=== PATIENT | female | born 1955 | race Caucasian/White ===

== ENCOUNTER → 2018-06-30 | Outpatient (CLI) | payer OTHER ==
[~2018-06-30] MED LIST: ALEVE PM CAPLE1 EACH PO; BLADDER CONTROL MED; GABAPENTIN 100100 MG PO; IBUPROFEN 600600 M1 PO; NORCO 5-325 TA1 EACH PO; OXYBUTYNIN 5 MG5 M2 PO; OXYBUTYNIN CHLO15 MG PO; PAROXETINE HCL25 MG PO; PAXIL 20 MG TAB20 M1; PREMARIN0.3 MG PO
== END ==
LOC: RAD 14:24
DX: Z12.31 Encounter for screening mammogram for malignant neoplasm of breast (principal)

== ENCOUNTER 2018-08-24 05:37 | Inpatient (IN) | payer OTHER ==
[2018-08-10 13:26] LABS: HEMATOCRIT 37.1 % (37.0-47.0); HEMOGLOBIN 12.2 gm/dL (12.0-15.0); MCH 28.9 pg (26.0-34.0); MCV 87.6 fL (80.0-100.0); RBC 4.23 mil/uL (4.20-5.00); RDW 14.8 % (10.5-14.5); WBC 4.8 thou/uL (4.0-11.0)
[2018-08-10 13:28] LABS: URINE CLARITY CLEAR; URINE COLOR YELLOW
[2018-08-10 13:29] LABS: URINE BILIRUBIN NEGATIVE (Negative); URINE BLOOD TRACE (Negative); URINE GLUCOSE-RANDOM* NEGATIVE (Negative); URINE KETONES NEGATIVE (Negative); URINE LEUKOCYTES-REFLEX NEGATIVE (Negative); URINE NITRITE-REFLEX NEGATIVE (Negative); URINE PROTEIN (DIPSTICK) NEGATIVE (Negative); URINE SPECIFIC GRAVITY 1.025 (1.005-1.035); URINE UROBILINOGEN 0.2 E.U./dl (0.2-1.0)
[2018-08-10 13:30] LABS: ALBUMIN 4.1 g/dL (3.4-5.0); CALCIUM 9.2 mg/dL (8.5-10.1); CREATININE 0.8 mg/dL (0.6-1.0); POTASSIUM 4.3 mmol/L (3.5-5.1)
[2018-08-10 13:31] LABS: PROTIME 10.3 Seconds (9.3-11.4)
--- NOTE | 2018-08-11 07:59 | EKG ---
[address] [address] ELECTROCARDIOGRAM REPORT Name: LUIS MIGUEL BROWN Room #: [facility] IN [facility]#: [id number] Admission: Attend Phys: Nando Alexander MD Discharge: Date of : 53 Report #: [id number] THIS REPORT FOR: //name// [facility] Test Date: 2018-08-10 Test Time: 13:11:36 Pat Name: LUIS MIGUEL BROWN Department: Room: Gender: F Gold Nib Grinder: SHAKIRA JAMES : 1955 Requested By: Nando Alexander Order Number: [id number] MD: Tj Kramer Measurements Intervals [place] Rate: 73 P: 59 LA: 217 QRS: -44 QRSD: 115 T: 46 QT: 422 QTc: 465 Interpretive Statements Sinus rhythm Borderline prolonged LA interval Nonspecific IVCD with LAD Left ventricular hypertrophy Inferior infarct, old Anterior infarct, old Compared to ECG 04/07/2005 10:48:29 Left ventricular hypertrophy now present Myocardial infarct finding still present Electronically Signed On 08-11-2018 7:59:00 HEAD STRENGTH AND CONDITIONING COACH by Tj Kramer [email or web address] <ELECTRONICALLY SIGNED> By: Tj Kramer MD 08/11/18 0759 1311 1311 Tj Kramer MD /EPI
[~2018-08-24] VITALS: Ht 162.6 cm; Wt 61.2 kg
[~2018-08-24 05:37] MED LIST changes: +GLUCOSAMINE CH1 EA10 PO; +INSTAFLEX PO; +MOBIC15 MG PO; +OCUVITE ADULT1 EAC1 PO
[2018-08-25 07:45] VITALS: BP 126/76
[2018-08-25 12:41] VITALS: BP 140/86
[2018-08-25 15:43] LABS: HEMATOCRIT 34.6 % (37.0-47.0); HEMOGLOBIN 11.6 gm/dL (12.0-15.0); MCH 29.7 pg (26.0-34.0); MCHC 33.6 g/dL (28.0-37.0); MCV 88.5 fL (80.0-100.0); PLATELET COUNT 320 thou/uL (150-400); RBC 3.91 mil/uL (4.20-5.00); RDW 15.3 % (10.5-14.5); WBC 4.2 thou/uL (4.0-11.0)
[2018-08-25 15:46] LABS: CALCIUM 8.9 mg/dL (8.5-10.1); CREATININE 0.7 mg/dL (0.6-1.0); POTASSIUM 3.8 mmol/L (3.5-5.1)
[2018-08-25 16:12] LABS: ABSOLUTE NEUTROPHILS 2.1 thou/uL (1.4-8.2); PLATELET ESTIMATE NORMAL
[2018-08-25 16:54] VITALS: BP 121/81
[2018-08-25 17:44] LABS: BE(vivo) -1.8 mmol/L (-2 to +3); HCO3 24.1 mmol/L (22.0-26.0); PCO2 46.1 mmHg (35.0-45.0); PO2 71.3 mmHg (80.0-100.0); pH 7.337 (7.360-7.450); sO2 93.3 % (92.0-98.0)
--- NOTE | 2018-08-25 18:16 | NUR ---
RECEIVED PT FROM OR APPROX 1245. A/O. C/O PAIN MANAGED BY MEDS ORDERED- SEE SEP. SOA W/ EXERTION O2 IN PLACE. KIRILL DRESSING CDI. NOTED DRESSING ON LEFT CALF WITH PINK DRAINAGE. DR. CARTER SAW PT TODAY- WILL REPEAT CXRAY IN AM. WILL CONT. TO MONITOR.
[2018-08-25 19:32] VITALS: BP 126/74
[2018-08-25 23:51] VITALS: BP 109/69
[2018-08-26 04:11] VITALS: BP 147/95
--- NOTE | 2018-08-26 04:41 | NUR ---
Assumed care of pt at 1900. Pt a&o x4. Picco dressing clean and intact. Pain controlled with prn pain meds. 1L O2. Will titrate down to 0 in the am. Possible d/c to home. Pt calls appropriately. Call light within reach. Will continue to monitor and assist with needs.
[2018-08-26 06:46] LABS: MCH 29.6 pg (26.0-34.0); MCHC 33.7 g/dL (28.0-37.0); RBC 3.07 mil/uL (4.20-5.00); RDW 14.8 % (10.5-14.5); WBC 7.5 thou/uL (4.0-11.0)
[2018-08-26 06:59] LABS: HEMOGLOBIN 9.1 gm/dL (12.0-15.0)
[2018-08-26 07:38] VITALS: BP 123/70
--- NOTE | 2018-08-26 08:05 | NUR ---
ATTEMPTED TO WEAN PT TO RA THIS AM UPON BEDSIDE REPORT. PT SATS NOTED ON 84% ON RA. PT PUT BACK OF 1L OF O2. WILL CONT. TO MONITOR.
--- NOTE | 2018-08-26 08:47 | NUR ---
RECEIVED PT CARE APPROX 0700. A/O/ANXIOUS. C/O PAIN MANAGED BY MEDS ORDERED- SEE SO W/ EXERTION. O2 IN PLACE. PT RESTING IN BED AT THIS TIME. WILL CONT. TO MONITOR.
--- NOTE | 2018-08-26 10:45 | NUR ---
PT OK TO DC PER PULMONARY STAND POINT- DR. CARTER.
--- NOTE | 2018-08-26 14:41 | NUR ---
PT ADMITTED RELATED TO RIGHT TOTAL KNEE REPLACEMENT. CM REVIEWED CHART AND SPOKE WITH CARE TEAM. CM MET WITH PT AT BEDSIDE THIS DAY. PT IS A&O X4. CM ROLE INTRODUCED. PT IS A&O X4. CM ROLE INTRODUCED. PT INDICATED SHE LIVES IN AN APARTMENT WITH HER SPOUSE WITH 7 STEPS TO ENTER AND NO STEPS INSIDE. 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 PT WILL DO OP THERAPY AT [facility] ON [address]. IT IS ANTIPCATED THAT PT WILL DISCHARGE HOME THIS DAY. NO OTHER CM INTERVETNION INDICATED AT THIS TIME. CASE CLOSED.
[2018-08-26 16:06] VITALS: BP 123/70
--- NOTE | 2018-08-26 16:41 | NUR ---
OK TO DC PER PHYSICAL THERAPY. DC INSTRUCTIONS GIVEN TO PT AND BOTH VERBALIZED UNDERSTANDING. PT DC'D HOME WITH SELF CARE.
--- NOTE | 2018-08-28 10:53 | O ---
[facility] [place] [address] [place] [address] OPERATIVE REPORT Name: LUIS MIGUEL BROWN Room #: 426-P [facility] IN M.R.#: [id number] Admission: 08/25/18 Attend Phys: Nando Alexander MD Discharge: 08/26/18 Date of : 53 Report #: [id number] THIS REPORT FOR: //name// CC: Abdirashid Alexander DATE OF SERVICE: 08/25/2018 PREOPERATIVE DIAGNOSES: 1. Right knee valgus osteoarthritis. 2. Retained hardware, right proximal tibia. POSTOPERATIVE DIAGNOSES: 1. Right knee valgus osteoarthritis. 2. Retained hardware, right proximal tibia. PROCEDURES: 1. Right total knee arthroplasty using Navio robotic optometric assistant. 2. Hardware removal, right proximal tibia. SURGEON: Nando Alexander M.D. EMERGENCY TELECOMMUNICATIONS DISPATCHER: Jayleen Venegas PA-C. INDICATION FOR EMERGENCY TELECOMMUNICATIONS DISPATCHER: Throughout the case, extensive retraction and manipulation of the knee was required. This was afforded to me by my optometric assistant. ANESTHESIA: LMA with an adductor canal block. IMPLANTS: [employer] size 5 Journey II BCS posterior stabilized Oxinium femur, a size 4 tibia, size 9 highly-constrained polyethylene and size 35 patella. TOURNIQUET TIME: 84 minutes. ESTIMATED BLOOD LOSS: 50 mL. COMPLICATIONS: None. SPECIMENS: None. CONDITION UPON LEAVING THE OPERATING ROOM: Stable. INDICATIONS FOR PROCEDURE: The patient is a 63-year-old female with severe right knee valgus osteoarthritis. She had failed conservative treatment for this and after discussion with her, she elected for right total knee [facility] [address] [place] [address] OPERATIVE REPORT Name: LUIS MIGUEL BROWN Room #: 426-P [facility] IN M.R.#: [id number] Admission: 08/25/18 Attend Phys: Nando Alexander MD Discharge: 08/26/18 Date of : 53 Report #: [id number]. In addition, she previously had a patellar realignment procedure with a tibial screw that would need to be removed during surgery. DESCRIPTION OF PROCEDURE: Risks, benefits, alternatives and complications were discussed in detail with the patient including but not limited to risk of anesthesia; risk of damage to nerves, arteries, blood vessels;, risk for infection or bleeding; risk for continued knee pain and need for reoperation. Informed consent was obtained from the patient. The right knee was appropriately marked in the preoperative holding area. IV Ancef was given for preoperative antibiotics. Adductor canal block was placed by Anesthesia. She was brought to the operating room and placed in supine position on the operating room table. LMA anesthesia was induced without complication. Tourniquet was placed on the right thigh. Right lower extremity was prepped and draped in normal sterile fashion. Timeout was performed properly identifying the patient and procedure as well as the instrumentation and implants. All in the operating room were in agreement. Right lower extremity was exsanguinated, tourniquet was inflated. Tourniquet time was 84 minutes. Standard midline approach to knee was made with 10 blade through the skin. Dissection was taken down sharply to the fascia and deep flaps were developed medially and laterally. A fresh 10 blade was used to make a medial parapatellar arthrotomy and the knee was inspected. There was severe valgus osteoarthritic change with tricompartmental involvement. The previously placed tibial tubercle screw from her previous surgery was then identified and removed with osteotome. After the osteophytes were removed from the femur and the tibia, reference pins were placed in the femur and the tibia and the knee was digitally mapped using the [employer] robotic system. We sized a size 5 femur and a size 4 tibia. After acceptance of the intraoperative plan, the distal femoral cut was made with a Navio bur. The 5-in-1 cutting block was then placed and the chamfer cuts were made on the femur. Attention was then turned to the tibia. The tibial resection guide was pinned in place using the [employer] robot for placement and tibial resection was made. After this, flexion and extension gaps were checked and found to still be tight in extension and so 2 mm of additional distal femur were taken and chamfer cuts were redone. This balanced the knee better; however, there was still fairly significant lateral tightness and so a limited lateral release was performed using the pie crust technique. This balanced the knee well. Given her valgus deformity, there was laxity medially and it was felt that we could make up for this with a constrained liner. The tibia was then sized, found to be a size 4. Size 4 tibial trial was placed, pinned and punched. A size 5 femoral trial was placed and the box cut was made. This was then trialed with a size 9 highly constrained polyethylene. Knee was taken through range of motion, found to be stable, found to have good balance in flexion and extension, both medially and laterally. A 9 mm was taken off the posterior surface of the patella and a size 35 patellar trial button was placed. Knee was taken through range of motion, [facility] [address] [place] [address] OPERATIVE REPORT Name: LUIS MIGUEL BROWN Room #: 426-P [facility] IN M.R.#: [id number] Admission: 08/25/18 Attend Phys: Nando Alexander MD Discharge: 08/26/18 Date of : 53 Report #: [id number] found to be stable, found to have good patellar tracking. After this, trial components were removed. Bony ends were thoroughly irrigated with normal saline. Final size 4 tibia, size 5 Journey II BCS Oxinium femur and a size 35 patella were cemented into place using standard cementation techniques. While the cement cured, a periarticular injection consisting of morphine, ropivacaine, epinephrine and Toradol was placed around the knee joint capsule. After the cement cured, the tourniquet was deflated. Hemostasis was obtained with Bovie cautery. Final size 9 highly constrained polyethylene was placed. A gram of vancomycin was placed deep in the joint. Fascia was closed with 0 Vicryl, skin was closed with 2-0 Vicryl and 3-0 Monocryl. Dermabond and a KIRILL dressing was applied. The patient tolerated this procedure well and went to the recovery room under care of anesthesia postoperatively. <ELECTRONICALLY SIGNED> By: Nando Alexander MD 08/28/18 1053 1021 1131 Nando Alexander MD /nt
== END 2018-08-26 16:48 | disposition home or self-care (01) | DRG 907 ==
LOC: PRE 05:37 → 4E 08-25 05:32 → TBA 08-25 05:32 → 4E 08-25 12:05 → PRE 08-25 14:47 → ENTRNSPT 08-26 16:27 → 4E 08-26 16:48
PROVIDERS: Pediatrics; ADMIT Orthopaedic Surgery
PROC: 0SRC069 Replacement of Right Knee Joint with Oxidized Zirconium on Polyethylene Synthetic Substitute, Cemented, Open Approach (ICD-10-PCS; principal; 2018-08-25)
PROC: 0QPG04Z Removal of Internal Fixation Device from Right Tibia, Open Approach (ICD-10-PCS; principal; 2018-08-25)
PROC: 8E0Y0CZ Robotic Assisted Procedure of Lower Extremity, Open Approach (ICD-10-PCS; principal; 2018-08-25)
DX: T85.898A Other specified complication of other internal prosthetic devices, implants and grafts, initial encounter (principal); J96.01 Acute respiratory failure with hypoxia; M17.11 Unilateral primary osteoarthritis, right knee; Y83.8 Other surgical procedures as the cause of abnormal reaction of the patient, or of later complication, without mention of misadventure at the time of the procedure; I10 Essential (primary) hypertension; Y92.89 Other specified places as the place of occurrence of the external cause; Z79.899 Other long term (current) drug therapy; Z82.5 Family history of asthma and other chronic lower respiratory diseases; Z83.3 Family history of diabetes mellitus; Z82.49 Family history of ischemic heart disease and other diseases of the circulatory system
CPT/HCPCS: 10783; 50010; 50101; 50415; 50954; 51130; 51225; 51771; 53000; 53078; 54118; 55372; 56527; 56528; 57095; 57103; 57109; 57110; 57113; 57127; 62110; 62900; 70005

== ENCOUNTER → 2020-07-02 | Outpatient (CLI) | payer OTHER | LOC: BC 11:04 | DX: Z12.31 Encounter for screening mammogram for malignant neoplasm of breast (principal) ==

== ENCOUNTER → 2021-07-03 | Outpatient (CLI) | payer OTHER | LOC: RAD 14:42 | PROVIDERS: ATTEND Internal Medicine | DX: Z12.31 Encounter for screening mammogram for malignant neoplasm of breast (principal) ==